=== PATIENT | female | born 1995 | race Caucasian/White ===

== ENCOUNTER 2021-04-11 19:37 | Emergency (ER) | payer OTHER ==
[~2021-04-11 19:37] MED LIST: BENTYL10 MG PO; FLAGYL500 MG PO; KEFLEX250 MG PO; MACROBID100 MG PO; VIBRAMYCIN100 MG PO; ZOFRAN8 MG PO
[2021-04-11 20:26] LABS: BASOPHIL 0.4 % (0-2); EOSINOPHIL 0.6 % (0-5); HCT 41.6 % (37.0-47.0); HGB 13.8 g/dl (12.5-16.0); LYMPHOCYTE 32.3 % (15-48); MCH 30.6 pg (25.0-31.0); MCHC 33.2 g/dL (32.0-36.0); MCV 92.2 fL (78.0-100.0); MONOCYTE 3.7 % (0-12); NEUTROPHIL 62.8 % (41-80); NRBC 0; PLT 195 K/uL (150-400); RBC 4.51 M/uL (4.20-5.40); RDW 12.5 % (11.5-14.0); WBC 5.4 K/uL (4.0-10.5)
[2021-04-11 20:36] LABS: INR 1.15 (0.9-1.2); PROTHROMBIN TIME 14.1 SECONDS (11.8-13.4)
[2021-04-11 20:44] LABS: ALBUMIN 4.1 g/dL (3.4-5.0); BILIRUBIN - TOTAL 0.9 mg/dL (0.2-1.0); BUN/CREAT RATIO (CALC) 8.9 RATIO; CREATININE 1.01 mg/dL (0.51-0.95); GLOBULIN (CALCULATION) 2.9 g/dL; POTASSIUM 3.9 mmol/L (3.5-5.1)
== END 2021-04-12 04:43 | disposition home or self-care (01) ==
LOC: FER 19:37
PROVIDERS: Emergency Medicine
DX: R20.2 Paresthesia of skin (principal); R07.89 Other chest pain; Z86.16 Personal history of COVID-19; Z88.1 Allergy status to other antibiotic agents; Z88.0 Allergy status to penicillin
CPT/HCPCS: 36415; 70450; 71045; 71275; 80053; 84484; 85025; 85610; 85730; 93005; J0780; J1200; J1885; J7030; Q9967